=== PATIENT | male | born 2005 | race Caucasian/White ===

== ENCOUNTER 2023-01-19 21:59 | Emergency (ER) | payer OTHER ==
[~2023-01-19] VITALS: Ht 172.7 cm; Wt 67.3 kg
[2023-01-19 22:01] VITALS: TEMP 98.7
[2023-01-20 00:41] VITALS: BP 154/95; PULSE 71
== END 2023-01-20 00:41 | disposition home or self-care (01) ==
LOC: COL.ER 21:59
DX: S00.33XA Contusion of nose, initial encounter (principal); S05.11XA Contusion of eyeball and orbital tissues, right eye, initial encounter; Z28.310 Unvaccinated for COVID-19; V58.5XXA Driver of pick-up truck or van injured in noncollision transport accident in traffic accident, initial encounter; Y92.410 Unspecified street and highway as the place of occurrence of the external cause